=== PATIENT | female | born 1995 | race Caucasian/White ===

== ENCOUNTER 2017-05-02 00:49 | Emergency (ER) | payer MEDICAID ==
[~2017-05-02] VITALS: Ht 152.4 cm; Wt 86.2 kg
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
[2017-05-02 01:21] VITALS: BP 156/71
--- NOTE | 2017-05-02 06:41 | RADIOLOGY REPORT PS360 ---
WRIST-3 VIEWS-LT HISTORY: Pain following injury INJURY ORDERING PHYSICIAN: Abiodun Haque MD PATIENT AGE: 21 years COMPARISON: None FINDINGS: No fracture or dislocation. No lytic or blastic change. There is normal mineralization. The joint spaces are well-preserved. No significant degenerative/arthritic changes. No erosive changes evident. IMPRESSION: Negative, no acute finding
== END 2017-05-02 01:23 | disposition home or self-care (01) ==
LOC: ER 00:49
PROC: 2W3DX1Z Immobilization of Left Lower Arm using Splint (ICD-10-PCS; principal; 2017-05-02)
DX: S63.502A Unspecified sprain of left wrist, initial encounter (principal); I10 Essential (primary) hypertension; X50.9XXA Other and unspecified overexertion or strenuous movements or postures, initial encounter; Y92.009 Unspecified place in unspecified non-institutional (private) residence as the place of occurrence of the external cause